=== PATIENT | female | born 1955 | race Caucasian/White ===

== ENCOUNTER 2016-07-10 10:19 | Day surgery (SDC) | payer BC ==
--- NOTE | ~2016-07-10 | EGD ---
EGD REPORT [facility] [address] [address] NAME: SHYANNE LUCIA : 53 STATUS : REG [facility]#: [id number] AGE: 61 ADM/REG DATE : 07/10/16 MR#: [id number] REPORT SERV DATE: 07/10/16 DICTATED BY: INGRID BOSWELL DATE: 07/10/16 REPORT STATUS : Draft TRANSCRIBED BY: [facility] DATE: 07/10/16 Pulmonology Patient Name: Shyanne Lucia Procedure Date: 07/10/2016 12:41 PM Date of : 1955 Attending MD: SHIN BOSWELL MD Procedure Date No Time: 07/10/2016 Procedure: Bronchoscopy Indications: Right lung mass Providers: SHIN BOSWELL MD Referring MD: GORGE CERVANTES JR., MD Medicines: Lidocaine 2% 20 mL Complications: No immediate complications Procedure: - ASA Grade Assessment: III - A patient with severe systemic disease. - A History and Physical has been performed. Patient meds and allergies have been reviewed. The risks and benefits of the procedure and the sedation options and risks were discussed with the patient. All questions were answered and informed consent was obtained. Patient identification and proposed procedure were verified prior to the procedure by the physician and the nurse in the pre-procedure area in the procedure room. Mental Status Examination: normal. Respiratory Examination: clear to auscultation. CV Examination: normal and RRR, no murmurs, no S3 or S4. ASA Grade Assessment: III - A patient with severe systemic disease. After reviewing the risks and benefits, the patient was deemed in satisfactory condition to undergo the procedure. The anesthesia plan was to use general anesthesia. Immediately prior to administration of medications, the patient was re-assessed for adequacy to receive sedatives. The heart rate, respiratory rate, oxygen saturations, blood pressure, adequacy of pulmonary ventilation, and response to care were monitored throughout the procedure. The physical status of the patient was re-assessed after the procedure. the Bronchoscope was introduced through the mouth, via the endotracheal tube (the patient was intubated for the procedure) and advanced to the tracheobronchial tree. Findings: The endotracheal tube is in good position. The visualized portion of the trachea is of normal caliber. The wily is sharp. The tracheobronchial tree was examined to at least the first subsegmental level. Bronchial mucosa along the left tracheobronchial angle - a small 1-2 mm nodule. See pictures. EGD REPORT [address] [place]. [address] NAME: SHYANNE LUCIA : 53 STATUS : REG [facility] PAT#: [id number] AGE: 61 ADM/REG DATE : 07/10/16 MR#: [id number] REPORT SERV DATE: 07/10/16 DICTATED BY: INGRID BOSWELL DATE: 07/10/16 REPORT STATUS : Draft [facility] DATE: 07/10/16 Initial endobronchial biopsy led to dramatic pulsatile bleeding which abated with balloon tamponade and topical epinephrine 1:[id number] 20 ccs. After balloon bronchoplasty, a second biopsy and endobronchial brush was performed for pathology. EBUS scope used to evaluate the vasculature. The right anterior pulmonary artery was visualized but no clear abberant vessel was seen. The FiO2 was lowered to less than 40% and argon plasma coagulation therapy was performed for destruction of the lesion and hemostasis. Impression: Small polypoid lesion along the LMS tracheobronchial angle which likely represents an AVM or vascular lesion. Lesion was biopsied and brush. Significant pulsatile bleeding was noted requiring topical epinephrine, balloon tamponade and argon plasma coagulation therapy. EBUS survey demonstrated proximity to the Right Main Pulmonary Artery but no aberrant vessel. Hemostasis was achieved. If bleeding re-occurs, I would recommend repeat bronchoscopy and possible interventional radiology bronchial artery embolization. Recommendation: - Follow up with Dr. Hudson and Dr. Bailey. - Await test results. Attending Participation: I personally performed the entire procedure. SHIN BOSWELL MD 07/10/2016 4:26 PM This report has been signed electronically. Number of Addenda: 0 Note Initiated On: 07/10/2016 12:41 PM [address] [address]
--- NOTE | ~2016-07-10 | CN ---
Consultation Report [facility] [address] [place]. [address] NAME: SHYANNE LUCIA : [birth year] STATUS : [facility]#: [id number] AGE: 61 ADM/REG DATE : 07/10/16 MR#: [id number] REPORT SERV DATE: 07/11/16 DICTATED BY: MADINA BOSWELL DATE: 07/10/16 REPORT STATUS : Draft TRANSCRIBED BY: MODL DATE: 07/10/16 CONSULTATION DATE OF CONSULTATION: 07/10/[address] Bailey and Dr. Hudson and Dr. Angel Cloud: Thank you for requesting my opinion regarding evaluation and management of Ms. Shyanne Lucia's hemoptysis and left bronchial lesion. Ms. Lucia is an extremely pleasant 61-year- old female with a significant past medical history of small cell lung cancer, status post chemo and radiation therapy approximately 20 years ago; coronary artery disease, status post CABG; heart failure; and COPD, who presents with a history of hemoptysis. The patient states that she developed hemoptysis for several weeks, and she underwent a CT scan of the chest and bronchoscopy performed by Dr. Hudson in [place]. She was noted to have a 2 to 3 mm friable adenoma noted in the left mainstem bronchus. It was lavaged and she was sent to Dr. Bailey for further evaluation. Dr. Bailey then recommended Interventional Pulmonology consultation. The patient states that she has not had any significant hemoptysis at least in the past several weeks. She denies any fevers, chills, night sweats, nausea, vomiting, diarrhea, constipation, constipation, or weight loss or weight gain. REVIEW OF SYSTEMS: A detailed 14-point review of systems was completed. Pertinent positives and negatives are listed above. PAST MEDICAL HISTORY: 1. Coronary artery disease, status post CABG. 2. Heart failure. 3. COPD. 4. Small cell lung cancer, status post chemo and radiation therapy. PAST SURGICAL HISTORY: As above. 1. Pro-cosmetic plastic surgery. 2. cath, LCA 90% distal, left circumflex 90% origin LVEDP and have 19 mm on 11/2010. The patient underwent three-vessel CABG with SVG/LAD/OM/distal RCA. SOCIAL HISTORY: The patient smoked tobacco remotely. She denies any significant history of alcohol or illicit drug abuse. FAMILY HISTORY: Diabetes and cardiovascular disease. ALLERGIES: NO KNOWN DRUG ALLERGIES. Consultation Report [facility] [address] [place]. [address] NAME: SHYANNE LUCIA : 53 STATUS : [facility]#: [id number] AGE: 61 ADM/REG DATE : 07/10/16 MR#: [id number] REPORT SERV DATE: 07/11/16 DICTATED BY: MADINA BOSWELL DATE: 07/10/16 REPORT STATUS : Draft TRANSCRIBED BY: [facility] DATE: 07/10/16 HOME MEDICATIONS: Reviewed and located in the paper chart. The patient stopped her aspirin as result of her bleeding. PHYSICAL EXAMINATION: VITAL SIGNS: Reviewed and located in the paper chart. GENERAL: No acute distress. Able to communicate in full paragraphs at a time. HEENT: Normocephalic, atraumatic. Pupils are equal, round, and reactive to light and accommodation. Posterior oropharynx is clear. NECK: No JVD. No LAD. Trachea midline. CARDIOVASCULAR: Regular rate and rhythm. S1, S2 present. LUNGS: Clear to auscultation bilaterally. ABDOMEN: Nontender, nondistended. Soft. Positive bowel sounds. EXTREMITIES: No clubbing, cyanosis, or edema. SKIN: No new rashes, lesions, or ulcers. PSYCHIATRIC: Alert and oriented x3. Appropriate mood and affect. Appropriate insight and judgment. NEUROLOGIC: 5/5 strength in upper and lower extremities. Cranial nerves 2 through 12 intact. Gait not tested. DTRs not performed. IMAGING: CT scan of the chest was reviewed personally. No obvious lesion was noted in the left mainstem bronchus. Images were imported from [employer]. Chronic changes were noted in the right medial apex with mild bronchiectasis and 2 mm left upper lobe lung nodule. Otherwise, lungs were clear. Exam date was 06/08/2016. ASSESSMENT AND PLAN: Ms. Shyanne Lucia is an extremely pleasant 61-year-old female, who is a patient of Dr. Hudson in [place], who presented with hemoptysis in May. She underwent an unrevealing CT scan and subsequent bronchoscopy. Bronchoscopy on 06/21/[address] 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 The patient's lesion was washed, and the patient was then sent to Dr. Bailey. He then recommended Interventional Pulmonology consultation. At this point, Ms. Lucia is an appropriate intervention. We discussed in detail potential options including continued observation versus bronchoscopy. We will perform excision of the lesion biopsy brush and potentially fulgurate the lesion. If there is significant adenopathy, which is not evident on the CT scan of the chest or if it is found to be malignant, we may pursue EBUS sampling of the lymph nodes. The patient is aware that bronchoscopy is associated with potential life-threatening risks, including lung collapse, respiratory failure, and even . If we perform thermal ablative interventions during the bronchoscopy, she is at risk fire. A summary of my recommendations are as follows: 1. Proceed with bronchoscopy with possible excision of lesion and thermal ablative treatment plus/minus EBUS. 2. Follow up with Dr. Hudson. Consultation Report [address] [address] NAME: SHYANNE LUCIA : 53 STATUS : [facility] PAT#: [id number] AGE: 61 ADM/REG DATE : 07/10/16 MR#: [id number] REPORT SERV DATE: 07/11/16 DICTATED BY: MADINA BOSWELL DATE: 07/10/16 REPORT STATUS : Draft TRANSCRIBED BY: MODL DATE: 07/10/16 3. Follow up with Dr. Bailey. Thank you for allowing me to participate in Ms. Lucia's care. Sincerely, BRANDEN/MODL Madina Boswell M.D. / [id number] CC: Jacob Montano M.D.
[~2016-07-10 10:19] MED LIST: ASAB PO; COMBIPATCH TD; CRESTOR10 PO; CRESTOR5 MG PO; KLOR-CON 1010 MEQ PO; KLOR-CON M2020 MEQ PO; L40 PO; LEVOTHYROXIN100 MCG PO; LEVOTHYROXIN150 MCG PO; MULTIPLE VIT PO; NITROSTAT0.4 MG SL; SEPTRA; SPIRIVA INH; TOPXL25 PO; ULTRACET PO; VENTOLIN HFA INH
[2016-07-10 10:44] LABS: BASOPHILS 0.7 %; BASOPHILS ABSOLUTE 0.06 10/3/uL (0.0-0.16); EOSINOPHILS 1.4 %; EOSINOPHILS ABSOLUTE 0.12 10/3/uL (0.0-0.53); IMMATURE GRANULOCYTES 0.4 %; IMMATURE GRANULOCYTES ABSOLUTE 0.03 10/3/uL (0.0-0.11); LYMPHOCYTES 25.2 %; LYMPHOCYTES ABSOLUTE 2.15 10/3/uL (0.67-4.30); MEAN PLATELET VOLUME 8.9 fL (9.2-13.0); MONOCYTES 8.9 %; MONOCYTES ABSOLUTE 0.76 10/3/uL (0.21-1.20); NEUTROPHILS 63.4 %; PLATELET COUNT 257 10/3/uL (150-400); RBC DISTRIBUTION WIDTH 12.3 % (12.0-16.0); WHITE BLOOD CELLS 8.5 10/3/uL (4.5-10.5)
[2016-07-10 10:47] LABS: HEMATOCRIT 42.2 % (36.0-48.0); HEMOGLOBIN 14.6 g/dL (12.0-16.0); MANUAL DIFF NO %; MEAN CORPUS HGB CONC 34.6 g/dL (32.0-36.0); MEAN CORPUSCULAR HEMOGLOB 32.1 pg (26.0-34.0); MEAN CORPUSCULAR VOLUME 92.7 fL (80-100); RED CELL COUNT 4.55 10/6/uL (4.0-5.6)
[2016-07-10 10:50] LABS: PARTIAL THROMBO TIME 26.4 SEC (22.5-37.2); PROTIME (NOT ORD) 13.2 SEC (12.0-14.5)
[2016-07-10 10:57] LABS: BUN (BLOOD UREA NITROGEN) 16 MG/DL (6-23); CALCIUM, SERUM 8.5 MG/DL (8.5-10.4); CHLORIDE, SERUM 104 MMOL/L (96-112); CO2 (CARBON DIOXIDE) 28 MMOL/L (24-34); CREATININE 0.84 MG/DL (0.55-1.02); GFR AFRICAN AMERICAN 86 ML/MIN (>=60); GFR NON AFRICAN AMERICAN 74 ML/MIN (>=60); GLUCOSE, SERUM 112 MG/DL (60-99); POTASSIUM, SERUM 4.3 MMOL/L (3.5-5.3); SODIUM, SERUM 139 MMOL/L (135-148)
== END 2016-07-10 19:06 | disposition home or self-care (01) ==
LOC: DMU 10:19
PROVIDERS: Anesthesiology; Internal Medicine
PROC: 0BB78ZX Excision of Left Main Bronchus, Via Natural or Artificial Opening Endoscopic, Diagnostic (ICD-10-PCS; principal; 2016-07-10 12:30)
PROC: 0B7 Respiratory System, Dilation (ICD-10-PCS; 2016-07-10 12:30)
PROC: 0B578ZZ Destruction of Left Main Bronchus, Via Natural or Artificial Opening Endoscopic (ICD-10-PCS; 2016-07-10 12:30)
DX: R91.8 Other nonspecific abnormal finding of lung field (principal); Z85.118 Personal history of other malignant neoplasm of bronchus and lung; I25.10 Atherosclerotic heart disease of native coronary artery without angina pectoris; I50.9 Heart failure, unspecified; E03.9 Hypothyroidism, unspecified; E78.00 Pure hypercholesterolemia, unspecified; J44.9 Chronic obstructive pulmonary disease, unspecified; Z98.890 Other specified postprocedural states; Z82.49 Family history of ischemic heart disease and other diseases of the circulatory system; Z83.3 Family history of diabetes mellitus; Z92.3 Personal history of irradiation; Z92.21 Personal history of antineoplastic chemotherapy; Z95.1 Presence of aortocoronary bypass graft; Z87.891 Personal history of nicotine dependence; Z88.8 Allergy status to other drugs, medicaments and biological substances; Z79.818 Long term (current) use of other agents affecting estrogen receptors and estrogen levels; Z79.899 Other long term (current) drug therapy
CPT/HCPCS: 71010; 80048; 85025; 85610; 85730; 88112; 88305; 88333; 93005; 94640; A9270-GY; C1725; C1757; J2370; J2405; J2710; J3010